=== PATIENT | male | born 1955 | race Caucasian/White ===

== ENCOUNTER → 2016-10-29 | Outpatient (REF) | payer OTHER ==
[~2016-10-29] MED LIST: ASPI325T PO; BUDE150T PO; MULTIVIT PO; SIMV40TA2 PO; SYNT175T PO; TESTIN TOP; UROXATRAL PO
== END | disposition home or self-care (01) ==
LOC: M LAB REF 10:09
PROVIDERS: ATTEND Urology
DX: E29.1 Testicular hypofunction (principal)

== ENCOUNTER → 2016-11-26 | Outpatient (REF) | payer OTHER | LOC: M SMT 12:52 | PROVIDERS: ATTEND Urology | DX: R35.0 Frequency of micturition (principal) ==

== ENCOUNTER → 2016-11-28 | Outpatient (REF) | payer OTHER | LOC: M LABDRAW1 11:47 | PROVIDERS: ATTEND Urology | DX: Z12.5 Encounter for screening for malignant neoplasm of prostate (principal) ==

== ENCOUNTER → 2016-12-12 | Outpatient (CLI) | payer OTHER ==
[2016-12-12 13:50] LABS: MEAN CORPUSCULAR HEMOGLOBIN 25.7 pg (27.0-33.0); MEAN CORPUSCULAR HGB CONC 31.9 g/dl (32.0-36.5); MEAN CORPUSCULAR VOLUME 80.7 fl (80.0-96.0); WHITE BLOOD COUNT 7.7 K/mm3 (4.0-10.0)
[2016-12-12 13:55] LABS: INR 0.94
[2016-12-12 14:17] LABS: ANION GAP 10 MEQ/L (8-16); BLOOD UREA NITROGEN 11 MG/DL (7-18); CALCIUM LEVEL 8.9 MG/DL (8.8-10.2); CARBON DIOXIDE LEVEL 26 MEQ/L (21-32); CHLORIDE LEVEL 105 MEQ/L (98-107); CREATININE FOR GFR 0.97 MG/DL (0.70-1.30); GLOMERULAR FILTRATION RATE > 60.0 (>49); GLUCOSE, FASTING 88 MG/DL (80-110); SODIUM LEVEL 141 MEQ/L (136-145)
--- NOTE | 2016-12-12 14:31 | REP ---
Clinical: Preoperative assessment. Comparison: 08/10/2015 . Technique: PA and lateral. Findings: The mediastinum and cardiac silhouette are normal. Airway is patent and midline. The lung urrutia are clear and without acute consolidation, effusion, or pneumothorax. The skeletal structures are intact and normal. Impression: 1. No acute cardiopulmonary process. Signed by Noah Block MD 12/12/2016 02:22 P
--- NOTE | 2016-12-13 22:00 | ECGEPIP ---
Stationary ECG Study [facility] Test Date: 2016-12-12 Pat Name: OSMEL ANGULO Department: Room: - Gender: M Orthopedic Technician: YORDAN : 1955 Requested By: LYNN Alaniz Order Number: [id number] Reading MD: Cesar Cobos Measurements Intervals [place] Rate: 78 P: 28 ID: [id number] QRS: 33 QRSD: 97 T: 26 QT: 360 QTc: 411 Interpretive Statements SINUS RHYTHM SIMILAR 02/27/14 Electronically Signed On 12-13-2016 21:59:58 EDT by Cesar Cobos
== END ==
LOC: M RAD 13:10
PROVIDERS: ATTEND Urology
DX: R35.0 Frequency of micturition (principal)

== ENCOUNTER → 2017-01-14 | Outpatient (REF) | payer OTHER ==
[~2017-01-14] MED LIST changes: +ASPI81TA85 PO; +CRES10TA32 PO; +LEVA500T PO; +LEVO175T2 PO; +MOBI15TA PO; +MULT1TAB10 PO; +OMEP20CA3 PO; +TESTOPEL
== END ==
LOC: M SMT 10:23
PROVIDERS: ATTEND Urology
DX: N40.1 Benign prostatic hyperplasia with lower urinary tract symptoms (principal)

== ENCOUNTER → 2017-01-23 | Outpatient (REF) | payer OTHER | LOC: M SMT 11:57 | PROVIDERS: ATTEND Nurse Practitioner Women's Health | DX: R31.0 Gross hematuria (principal) ==

== ENCOUNTER → 2017-01-25 | Outpatient (CLI) | payer OTHER ==
[~2017-01-25] MED LIST changes: +GASTROGRAFIN SOLUTION 30ML (Q9963) As Ordered ONE; +ISOVUE-370 76% 100ML VIAL (Q9967) As Ordered ONE
--- NOTE | 2017-01-26 09:15 | REP ---
CT ABDOMEN: HISTORY: Abdominal pain. PRIORS: 02/27/2014, a noncontrast enhanced examination and 10/30/2013, a contrast enhanced examination. CONTRAST: 100 mL of Isovue-370. The lung bases are essentially clear and unchanged. There are some chronic changes, stable. There are no pleural or pericardial effusions. The precontrast enhanced portion of the examination shows hepatic and splenic densities to be within normal limits. There are no choleliths or nephroliths. The contrast enhanced portion of the examination shows the liver, gallbladder, spleen, pancreas, adrenal glands and kidneys to be within normal limits and essentially unchanged. The abdominal aorta and paraaortic regions are within normal limits and essentially unchanged. The bowel loops and their mesenteries are within normal limits. There are a few scattered descending colon diverticula. There is no intraabdominal mass or adenopathy. CT pelvis: There is no mass or adenopathy. There is no free fluid or free air. There is sigmoid colon diverticulosis. The prostate gland is full sized, possibly enlarged. There is corpora amylacea. There are pelvic phleboliths. Bone window technique throughout the examination shows the osseous structures to be within normal limits for the patient's age. IMPRESSION: There is no evidence of acute intraabdominal or intrapelvic disease. Findings as described above. Possible prostatomegaly which should be correlated clinically and seen in conjunction with corpora amylacea. Other findings as described above. Signed by Riky Leblanc DO 01/26/2017 09:21 A
== END ==
LOC: M RAD 13:47
PROVIDERS: ATTEND Nurse Practitioner Family
DX: R10.11 Right upper quadrant pain (principal); R10.811 Right upper quadrant abdominal tenderness; N40.0 Benign prostatic hyperplasia without lower urinary tract symptoms
CPT/HCPCS: 74178; Q9963; Q9967

== ENCOUNTER → 2017-03-05 | Outpatient (CLI) | payer OTHER ==
[~2017-03-05] MED LIST changes: -GASTROGRAFIN SOLUTION 30ML (Q9963) As Ordered ONE; -ISOVUE-370 76% 100ML VIAL (Q9967) As Ordered ONE
== END ==
LOC: M LAB 11:21
PROVIDERS: ATTEND Urology
DX: E29.1 Testicular hypofunction (principal)

== ENCOUNTER 2017-04-03 08:23 | Emergency (ER) | payer OTHER ==
[~2017-04-03] VITALS: Ht 172.7 cm; Wt 94.5 kg
[~2017-04-03 08:23] MED LIST changes: +LEVA1TAB2 PO; -LEVA500T PO
[2017-04-03 09:02] LABS: BASO % 0.4 % (0.0-1.0); EOS # 0.2 K/mm3 (0.0-0.50); EOS % 1.8 % (0.0-3.0); LARGE UNSTAINED CELL # 0.1 K/mm3 (0.0-0.4); LARGE UNSTAINED CELL % 1.3 % (0.0-4.0); LYMPH # 1.1 K/mm3 (1.5-4.5); LYMPH % 11.3 % (24.0-44.0); MEAN CORPUSCULAR HEMOGLOBIN 26.4 pg (27.0-33.0); MEAN CORPUSCULAR HGB CONC 32.4 g/dl (32.0-36.5); MEAN CORPUSCULAR VOLUME 81.3 fl (80.0-96.0); MONO # 0.5 K/mm3 (0.0-0.8); MONO % 5.6 % (0.0-5.0); NEUTROPHILS # 6.7 K/mm3 (1.8-7.7); NEUTROPHILS % 79.6 % (36.0-66.0); PLATELET COUNT, AUTOMATED 212 k/mm3 (150-450); WHITE BLOOD COUNT 8.4 K/mm3 (4.0-10.0)
[2017-04-03 09:18] LABS: ALBUMIN 3.5 GM/DL (3.2-5.2); ALBUMIN/GLOBULIN RATIO 1.06 (1.00-1.93); ALKALINE PHOSPHATASE 69 U/L (45-117); ALT/SGPT 29 U/L (12-78); ANION GAP 5 MEQ/L (8-16); AST/SGOT 17 U/L (15-37); BILIRUBIN,DIRECT 0.2 MG/DL (0.0-0.2); BILIRUBIN,TOTAL 1.1 MG/DL (0.2-1.0); BLOOD UREA NITROGEN 9 MG/DL (7-18); CALCIUM LEVEL 8.3 MG/DL (8.8-10.2); CARBON DIOXIDE LEVEL 27 MEQ/L (21-32); CHLORIDE LEVEL 105 MEQ/L (98-107); CREATININE FOR GFR 0.74 MG/DL (0.70-1.30); GLOMERULAR FILTRATION RATE > 60.0 (>49); GLUCOSE, FASTING 105 MG/DL (80-110); POTASSIUM SERUM 3.7 MEQ/L (3.5-5.1); SODIUM LEVEL 137 MEQ/L (136-145); TOTAL PROTEIN 6.8 GM/DL (6.4-8.2)
[2017-04-03] MEDS ORDERED: KETOROLAC 30 MG/ML VIAL (J1885) IV ONE (09:30)
[2017-04-03] MEDS ORDERED: ISOVUE-370 76% 100ML VIAL (Q9967) As Ordered ONE (09:32)
[2017-04-03 11:03] VITALS: BP 131/73
--- NOTE | 2017-04-03 11:18 | REP ---
CT ABDOMEN AND PELVIS WITH IV CONTRAST: TECHNIQUE: Axial contrast enhanced images from the lung bases to the pubic symphysis using 100 mL Isovue 370 intravenous contrast material with multiplanar reformations. The visualized lung bases demonstrate mild fibroatelectatic change. The liver, spleen, adrenals, pancreas and kidneys are unremarkable in appearance. There is no abdominal aortic aneurysm. There is no adenopathy. There is no free air. There is mild scattered free fluid throughout the abdomen and pelvis. There are multiple moderately dilated small bowel loops noted. Distal ileum is relatively normal in caliber. Findings may represent some degree of small bowel obstruction versus an ileus. Several sigmoid diverticula and left colonic diverticula are present. No pelvic mass is seen. Urinary bladder appears unremarkable. The appendix is normal. IMPRESSION: Multiple moderately dilated small bowel loops with mild scattered free fluid in the abdomen and pelvis. Findings are suggestive of some degree of small bowel obstruction or possibly a small bowel ileus. Signed by Simeon Gilbert MD 04/03/2017 05:36 P
--- NOTE | 2017-04-03 21:47 | ECGEPIP ---
Stationary ECG Study [facility] - ED Test Date: 2017-04-03 Pat Name: OSMEL ANGULO Department: Room: - Gender: M Web Application Tester: rn : 1955 Requested By: LORETA Duvall Order Number: [id number] Reading MD: Radha Ralph Measurements Intervals [place] Rate: 84 P: 28 FL: 140 QRS: 24 QRSD: 108 T: 22 QT: 365 QTc: 434 Interpretive Statements SINUS RHYTHM SIMILAR 12/12/16 Electronically Signed On 04-03-2017 21:47:05 EDT by Radha Ralph
--- NOTE | 2017-04-04 15:01 | ED PDOC ---
Post-Departure Follow-Up dr ceron faxed formal report of ct abd/p for fu Leyda Bliss MD Apr 04, 2017 15:01
[2017-05-13] MEDS ORDERED: ASPI81TA85 PO (08:32)
[2017-05-13] MEDS ORDERED: VITA200015 PO (08:32)
== END 2017-04-03 11:38 | disposition home or self-care (01) ==
LOC: M ED 08:23
DX: K52.9 Noninfective gastroenteritis and colitis, unspecified (principal); K56.7 Ileus, unspecified; K21.9 Gastro-esophageal reflux disease without esophagitis; E07.9 Disorder of thyroid, unspecified; A69.20 Lyme disease, unspecified; Z87.891 Personal history of nicotine dependence; Z88.8 Allergy status to other drugs, medicaments and biological substances; Z88.0 Allergy status to penicillin; Z88.1 Allergy status to other antibiotic agents; Z79.899 Other long term (current) drug therapy
CPT/HCPCS: 74177; 80048; 80076; 82550; 82553; 83690; 85025; 93005; 93041; 94760; 96374; 99285; J1885; Q9967

== ENCOUNTER → 2017-04-04 | Outpatient (CLI) | payer BC ==
[~2017-04-04] MED LIST changes: +BACT800T5 PO; +TYLE650T35 PO; +VITA200015 PO
== END ==
LOC: EDBD → EDSEX → M RAD 09:15
PROVIDERS: ATTEND Orthopaedic Surgery
DX: Z53.8 Procedure and treatment not carried out for other reasons (principal)

== ENCOUNTER → 2017-04-04 | Outpatient (CLI) | payer OTHER | LOC: M SMT PRO 09:24 | PROVIDERS: ATTEND Urology | DX: Z01.818 Encounter for other preprocedural examination (principal); N52.9 Male erectile dysfunction, unspecified; N48.1 Balanitis ==

== ENCOUNTER → 2017-05-14 | Outpatient (CLI) | payer OTHER | LOC: M LAB 08:23 | PROVIDERS: ATTEND Internal Medicine | DX: R73.09 Other abnormal glucose (principal) ==

== ENCOUNTER → 2017-05-14 | Outpatient (CLI) | payer OTHER ==
[2017-05-14 08:48] LABS: MEAN CORPUSCULAR HEMOGLOBIN 26.2 pg (27.0-33.0); MEAN CORPUSCULAR HGB CONC 32.2 g/dl (32.0-36.5); MEAN CORPUSCULAR VOLUME 81.5 fl (80.0-96.0); RED CELL DISTRIBUTION WIDTH 13.4 % (11.5-14.5); WHITE BLOOD COUNT 6.6 K/mm3 (4.0-10.0)
[2017-05-14 08:59] LABS: INR 0.9
[2017-05-14 09:11] LABS: ANION GAP 7 MEQ/L (8-16); BLOOD UREA NITROGEN 14 MG/DL (7-18); CALCIUM LEVEL 8.8 MG/DL (8.8-10.2); CARBON DIOXIDE LEVEL 26 MEQ/L (21-32); CHLORIDE LEVEL 108 MEQ/L (98-107); CREATININE FOR GFR 0.85 MG/DL (0.70-1.30); GLOMERULAR FILTRATION RATE > 60.0 (>49); GLUCOSE, FASTING 101 MG/DL (80-110); POTASSIUM SERUM 4.6 MEQ/L (3.5-5.1); SODIUM LEVEL 141 MEQ/L (136-145)
== END ==
LOC: M LAB 08:20
PROVIDERS: ATTEND Urology
DX: Z01.812 Encounter for preprocedural laboratory examination (principal); N48.1 Balanitis

== ENCOUNTER 2017-05-22 10:25 | Day surgery (SDC) | payer OTHER ==
[~2017-05-22] VITALS: Ht 172.7 cm; Wt 93.9 kg
[~2017-05-22 10:25] MED LIST changes: -BACT800T5 PO; +LIDOCAINE 2% INJ 100 MG/5 ML SDV (FOR ANES.) As Ordered ONE; +LR 1,000 ML IV ONE; +MIDAZOLAM INJ 2 MG/2 ML VIAL (J2250) As Ordered ONE; +PROPOFOL 200 MG/20 ML VIAL As Ordered ONE; -TYLE650T35 PO; +VANCOMYCIN HCL 1,000 MG, VIAL MATE ADAPTER 1 EACH in D5W 250 ML IV ONE; +fentaNYL 250 MCG/5 ML INJECTION (J3010) As Ordered ONE
[2017-05-22] MEDS ORDERED: LIDOCAINE 1% SDV INJ 30 ML VIAL As Ordered ONE (13:07)
[2017-05-22] MEDS ORDERED: BACITRACIN OINT 30GM As Ordered ONE (13:07)
[2017-05-22] MEDS ORDERED: BUPIVACAINE HCL 0.25% 30 ML VIAL As Ordered ONE ×2 (13:07→13:10)
[2017-05-22] MEDS ORDERED: ONDANSETRON 4MG/2ML VIAL (J2405) As Ordered ONE (13:41)
[2017-05-22] MEDS ORDERED: METOCLOPRAMIDE INJ 10MG/2ML VIAL (J2765) As Ordered ONE (13:41)
[2017-05-22] MEDS ORDERED: dexameTHASONE 4 MG/ML 1ML VIAL (J1100) As Ordered ONE (13:41)
[2017-05-22] MEDS ORDERED: PROPOFOL 200 MG/20 ML VIAL As Ordered ONE (14:06)
[2017-05-22] MEDS ORDERED: KETOROLAC 60 MG/2 ML VIAL (J1885) As Ordered ONE (14:19)
[2017-05-22] MEDS ORDERED: BACT800T5 PO (14:42)
[2017-05-22] MEDS ORDERED: TYLE650T35 PO (14:42)
[2017-05-22 15:55] VITALS: BP 138/78
--- NOTE | 2017-05-22 22:23 | RO ---
DATE OF PROCEDURE: 05/22/2017 PREOPERATIVE DIAGNOSIS: Foreskin lymphedema. POSTOPERATIVE DIAGNOSIS: Foreskin lymphedema. FINDINGS: Foreskin lymphedema. SURGERY PERFORMED: Circumcision. SURGEON: Scot Maradiaga MD WANIGAN CLERK: None. ANESTHESIA: General. COMPLICATIONS: None. ESTIMATED BLOOD LOSS: N/A HISTORY OF PRESENT ILLNESS: This is a 62-year-old male patient that has lymphedema of the foreskin at the level of the mucosa of the foreskin near the sulcus of the glans. For this reason he has consented for a circumcision. PROCEDURE DESCRIPTION: With the patient under general anesthesia in the supine position, after prepping and draping the area of concern, which included the entire genitalia and abdomen, we started by introducing a Flower catheter since he had a septum in the urethral meatus to identify the urethra. We then proceeded to do an incision 1 cm away from the sulcus of the glans in a circumferential fashion and then 3 cm proximal to the base of the penis we actually did another circumferential incision. We excised the foreskin between both incisions, fulgurated the bleeding vessels and sent the foreskin for permanent pathology analysis. We then proceeded to suture together the borders of the skin with catgut chromic #3-0 in separate stitches. We then proceeded to actually place a penile block to prevent pain after surgery with Marcaine 0.25% and lidocaine 1%, total of 10 mL at the base of the penis. We then proceeded to place Vaseline and gauze around the penis and then Kerlix roll and a Coban. PLAN: The patient will go home today with antibiotic and pain medication. He will be following at [facility] in 3 days for removal of the bandages. There were no complications during surgery. Foreskin was sent for permanent pathology analysis.
== END 2017-05-22 16:20 | disposition home or self-care (01) ==
LOC: M SDC 10:25
PROVIDERS: ATTEND Urology
DX: N48.1 Balanitis (principal); I10 Essential (primary) hypertension; E03.9 Hypothyroidism, unspecified; A69.20 Lyme disease, unspecified; E29.1 Testicular hypofunction; K21.9 Gastro-esophageal reflux disease without esophagitis; M17.0 Bilateral primary osteoarthritis of knee; G47.30 Sleep apnea, unspecified; Z87.891 Personal history of nicotine dependence; Z88.0 Allergy status to penicillin; Z88.1 Allergy status to other antibiotic agents; Z88.3 Allergy status to other anti-infective agents; Z79.899 Other long term (current) drug therapy; Z79.82 Long term (current) use of aspirin
CPT/HCPCS: 54161; 88302; J1100; J1885; J2250; J2405; J2765; J3010; J3370

== ENCOUNTER → 2017-07-11 | Outpatient (CLI) | payer OTHER ==
[~2017-07-11] MED LIST changes: +BACT800T5 PO; -LIDOCAINE 2% INJ 100 MG/5 ML SDV (FOR ANES.) As Ordered ONE; -LR 1,000 ML IV ONE; -MIDAZOLAM INJ 2 MG/2 ML VIAL (J2250) As Ordered ONE; -PROPOFOL 200 MG/20 ML VIAL As Ordered ONE; +TYLE650T35 PO; -VANCOMYCIN HCL 1,000 MG, VIAL MATE ADAPTER 1 EACH in D5W 250 ML IV ONE; -fentaNYL 250 MCG/5 ML INJECTION (J3010) As Ordered ONE
== END ==
LOC: M LAB 07:45
PROVIDERS: ATTEND Urology
DX: E29.1 Testicular hypofunction (principal)

== ENCOUNTER → 2017-07-16 | Outpatient (CLI) | payer OTHER ==
[2017-07-16 16:17] LABS: URIC ACID 4.6 MG/DL (3.5-7.2)
--- NOTE | 2017-07-16 16:31 | REP ---
STANDING AP VIEW BILATERAL KNEES: Standing AP view bilateral knees performed. There is no fracture or dislocation. There is mild medial joint space narrowing on the left. I do not see significant joint space narrowing on the right. Signed by Simeon Gilbert MD 07/17/2017 04:31 P
[2017-07-19 00:06] LABS: Lyme Disease IgG/IgM Antibodie <0.91 ISR (0.00-0.90); Lyme Disease IgM Ab Quantitati <0.80 index (0.00-0.79)
== END ==
LOC: M LAB 12:31
PROVIDERS: ATTEND Internal Medicine Infectious Disease
DX: M25.561 Pain in right knee (principal)

== ENCOUNTER → 2017-08-08 | Outpatient (REF) | payer OTHER | LOC: M LAB REF 12:14 | PROVIDERS: ATTEND Internal Medicine | DX: E03.9 Hypothyroidism, unspecified (principal) ==

== ENCOUNTER → 2017-08-08 | Outpatient (CLI) | payer OTHER ==
[2017-08-08 08:50] LABS: BASO # 0.1 10^3/uL (0.0-0.2); BASO % 0.7 % (0.0-1.0); EOS # 0.3 10^3/uL (0.0-0.50); EOS % 2.9 % (0.0-3.0); IMMATURE GRANULOCYTE % 0.2 % (0-0); LYMPH # 1.7 10^3/uL (1.5-4.5); LYMPH % 18.3 % (24.0-44.0); MEAN CORPUSCULAR HGB CONC 32.2 g/dl (32.0-36.5); MEAN CORPUSCULAR VOLUME 80.7 fl (80.0-96.0); MONO # 0.6 10^3/uL (0.0-0.8); MONO % 7.1 % (0.0-5.0); NEUTROPHILS # 6.4 10^3/uL (1.8-7.7); NEUTROPHILS % 70.8 % (36.0-66.0); PLATELET COUNT, AUTOMATED 300 10^3/uL (150-450); RED CELL DISTRIBUTION WIDTH 14.6 % (11.5-14.5); WHITE BLOOD COUNT 9.1 10^3/uL (4.0-10.0)
[2017-08-08 09:17] LABS: ALBUMIN 3.7 GM/DL (3.2-5.2); ALBUMIN/GLOBULIN RATIO 1.09 (1.00-1.93); ALKALINE PHOSPHATASE 88 U/L (45-117); ALT/SGPT 36 U/L (12-78); ANION GAP 7 MEQ/L (8-16); AST/SGOT 18 U/L (7-37); BILIRUBIN,DIRECT 0.2 MG/DL (0.0-0.2); BILIRUBIN,TOTAL 0.7 MG/DL (0.2-1.0); BLOOD UREA NITROGEN 12 MG/DL (7-18); CALCIUM LEVEL 9.3 MG/DL (8.8-10.2); CARBON DIOXIDE LEVEL 27 MEQ/L (21-32); CHLORIDE LEVEL 105 MEQ/L (98-107); CHOLESTEROL LEVEL 145 MG/DL (<200); CREATININE FOR GFR 0.85 MG/DL (0.70-1.30); GLOMERULAR FILTRATION RATE > 60.0 (>49); GLUCOSE, FASTING 109 MG/DL (80-110); MAGNESIUM LEVEL 2.1 MG/DL (1.8-2.4); POTASSIUM SERUM 4.5 MEQ/L (3.5-5.1); SODIUM LEVEL 139 MEQ/L (136-145); TOTAL PROTEIN 7.1 GM/DL (6.4-8.2); TRIGLYCERIDES LEVEL 136 MG/DL (<150)
== END ==
LOC: M LAB 08:05
PROVIDERS: ATTEND Internal Medicine Infectious Disease
DX: R73.09 Other abnormal glucose (principal); E03.9 Hypothyroidism, unspecified

== ENCOUNTER → 2017-08-18 | Outpatient (CLI) | payer OTHER ==
--- NOTE | 2017-08-18 13:12 | REP ---
Clinical: Flu-like symptoms . Comparison: 12/12/2016 . Technique: PA and lateral. Findings: The mediastinum and cardiac silhouette are normal. The lung urrutia demonstrate chronic stable changes without acute consolidation, effusion, or pneumothorax. The skeletal structures are intact and normal. Impression: 1. No acute cardiopulmonary process. Signed by Noah Block MD 08/18/2017 01:04 P
== END ==
LOC: M WUC 12:38
PROVIDERS: ATTEND Physician Assistant
DX: J09.X2 Influenza due to identified novel influenza A virus with other respiratory manifestations (principal)

== ENCOUNTER → 2017-11-21 | Outpatient (CLI) | payer OTHER ==
[2017-11-21 07:43] LABS: HEMATOCRIT 50.8 % (42.0-52.0); HEMOGLOBIN 16.7 g/dl (14.0-18.0); MEAN CORPUSCULAR HEMOGLOBIN 26.3 pg (27.0-33.0); MEAN CORPUSCULAR HGB CONC 32.9 g/dl (32.0-36.5); PLATELET COUNT, AUTOMATED 240 10^3/uL (150-450); RED BLOOD COUNT 6.35 10^6/uL (4.30-6.10); RED CELL DISTRIBUTION WIDTH 13.9 % (11.5-14.5); WHITE BLOOD COUNT 6.3 10^3/uL (4.0-10.0)
[2017-11-21 08:09] LABS: ANION GAP 8 MEQ/L (8-16); BLOOD UREA NITROGEN 17 MG/DL (7-18); CALCIUM LEVEL 8.7 MG/DL (8.8-10.2); CARBON DIOXIDE LEVEL 27 MEQ/L (21-32); CHLORIDE LEVEL 106 MEQ/L (98-107); CHOLESTEROL LEVEL 142 MG/DL (<200); CHOLESTEROL RISK RATIO 4.437 (<5); FREE T4 1.37 NG/DL (0.76-1.46); GLOMERULAR FILTRATION RATE > 60.0 (>49); GLUCOSE, FASTING 103 MG/DL (70-100); HDL CHOLESTEROL 32 MG/DL (>40); LDL CHOLESTEROL 85.4 MG/DL (<100); NON-HDL-C 110 MG/DL; POTASSIUM SERUM 4.1 MEQ/L (3.5-5.1); SODIUM LEVEL 141 MEQ/L (136-145); THYROID STIMULATING HORMONE 0.024 uIU/ML (0.358-3.740); TRIGLYCERIDES LEVEL 123 MG/DL (<150)
[2017-11-21 08:26] LABS: ESTIMATED AVERAGE GLUCOSE 123 MG/DL (60-110); HEMOGLOBIN A1c 5.9 %
== END ==
LOC: M LAB 06:53
DX: E78.5 Hyperlipidemia, unspecified (principal)

== ENCOUNTER → 2017-11-21 | Outpatient (CLI) | payer OTHER ==
[2017-11-21 09:46] LABS: TESTOSTERONE 582 NG/DL (241-827)
== END ==
LOC: M LAB 06:49
DX: E29.1 Testicular hypofunction (principal)
CPT/HCPCS: 84403

== ENCOUNTER → 2017-12-09 | Outpatient (CLI) | payer OTHER ==
[2017-12-09 16:04] LABS: APPEARANCE, URINE MANUAL CLEAR (CLEAR); BILIRUBIN, URINE MANUAL NEGATIVE (NEGATIVE); BLOOD URINE MANUAL NEGATIVE (NEGATIVE); COLOR, URINE MANUAL YELLOW (YELLOW); GLUCOSE, URINE (UA) MANUAL NEGATIVE (NEGATIVE); KETONE, URINE MANUAL NEGATIVE (NEGATIVE); LEUKOCYTE ESTERASE, URINE MAN NEGATIVE (NEGATIVE); NITRITE, URINE MANUAL NEGATIVE (NEGATIVE); PH,URINE MAN 5.5 UNITS (5.0 - 7.0); PROTEIN, URINE MANUAL NEGATIVE (NEGATIVE); SPECIFIC GRAVITY,URINE MANUAL 1.025 (1.002-1.035); UROBILINOGEN, URINE MANUAL NORMAL (NORMAL)
[2017-12-09 16:05] LABS: MICROSCOPIC INDICATED? MAN NO (NO)
== END ==
LOC: M LAB 15:41
DX: N39.0 Urinary tract infection, site not specified (principal)

== ENCOUNTER → 2018-02-21 | Outpatient (REF) | LOC: M RAD 14:21 | DX: Z02.1 Encounter for pre-employment examination (principal) ==

== ENCOUNTER → 2018-02-26 | Outpatient (REF) | LOC: M EKG 07:49 | DX: Z02.1 Encounter for pre-employment examination (principal) ==

== ENCOUNTER 2018-04-04 07:59 | Outpatient (CLI) | payer OTHER ==
[2018-04-07 09:04] LABS: PSA TOTAL 1.6 ng/mL
[2018-04-11 00:37] LABS: TESTOSTERONE FREE (DIRECT) 8.7 pg/mL (6.6-18.1)
== END 2018-04-09 ==
LOC: M LAB 07:59
DX: E29.1 Testicular hypofunction (principal)
CPT/HCPCS: 84154; 84403

== ENCOUNTER → 2018-07-09 | Outpatient (CLI) | payer OTHER | LOC: M LAB 07:55 | DX: E29.1 Testicular hypofunction (principal) | CPT/HCPCS: 84410 ==

== ENCOUNTER → 2018-07-09 | Outpatient (CLI) | payer OTHER ==
[2018-07-09 09:34] LABS: ESTIMATED AVERAGE GLUCOSE 120 MG/DL (60-110); HEMOGLOBIN A1c 5.8 %
[2018-07-09 09:56] LABS: ANION GAP 7 MEQ/L (8-16); BLOOD UREA NITROGEN 18 MG/DL (7-18); CALCIUM LEVEL 8.8 MG/DL (8.8-10.2); CARBON DIOXIDE LEVEL 28 MEQ/L (21-32); CHLORIDE LEVEL 107 MEQ/L (98-107); CHOLESTEROL LEVEL 144 MG/DL (<200); CHOLESTEROL RISK RATIO 4.645 (<5); CREATININE FOR GFR 0.98 MG/DL (0.70-1.30); GLOMERULAR FILTRATION RATE > 60.0 (>49); GLUCOSE, FASTING 111 MG/DL (70-100); HDL CHOLESTEROL 31 MG/DL (>40); LDL CHOLESTEROL 88 MG/DL (<100); NON-HDL-C 113 MG/DL; POTASSIUM SERUM 4.3 MEQ/L (3.5-5.1); SODIUM LEVEL 142 MEQ/L (136-145); TRIGLYCERIDES LEVEL 124 MG/DL (<150)
== END ==
LOC: M LAB 07:44
DX: E03.9 Hypothyroidism, unspecified (principal)
CPT/HCPCS: 84443

== ENCOUNTER → 2018-08-18 | Outpatient (CLI) | payer OTHER ==
[2018-08-18 11:17] LABS: GLUCOSE, FASTING 97 MG/DL (70-100)
== END ==
LOC: M LAB 09:46
DX: R73.09 Other abnormal glucose (principal); E03.9 Hypothyroidism, unspecified
CPT/HCPCS: 82947

== ENCOUNTER → 2018-09-22 | Outpatient (CLI) | payer OTHER | LOC: M LAB 11:03 | PROVIDERS: ATTEND Internal Medicine | DX: E03.9 Hypothyroidism, unspecified (principal) ==

== ENCOUNTER → 2018-10-17 | Outpatient (CLI) | payer OTHER ==
[2018-10-19 00:08] LABS: TESTOSTERONE FREE (DIRECT) 6.2 pg/mL (6.6-18.1)
== END ==
LOC: M LAB 09:35
PROVIDERS: ATTEND Urology
DX: F52.21 Male erectile disorder (principal)

== ENCOUNTER → 2018-11-10 | Outpatient (CLI) | payer OTHER ==
[2018-11-10 10:23] LABS: BLOOD UREA NITROGEN 16 MG/DL (7-18); CARBON DIOXIDE LEVEL 27 MEQ/L (21-32); CHLORIDE LEVEL 105 MEQ/L (98-107); CREATININE FOR GFR 0.91 MG/DL (0.70-1.30); GLOMERULAR FILTRATION RATE > 60.0 (>49); GLUCOSE, FASTING 107 MG/DL (70-100); POTASSIUM SERUM 4.2 MEQ/L (3.5-5.1); SODIUM LEVEL 138 MEQ/L (136-145)
[2018-11-10 10:42] LABS: HEMOGLOBIN A1c 6.1 %
== END ==
LOC: M LAB 08:57
PROVIDERS: ATTEND Internal Medicine
DX: E03.9 Hypothyroidism, unspecified (principal); E78.00 Pure hypercholesterolemia, unspecified; R73.09 Other abnormal glucose

== ENCOUNTER → 2018-11-14 | Outpatient (REF) | payer OTHER | LOC: M LAB REF 17:24 | PROVIDERS: ATTEND Dermatology | DX: D22.9 Melanocytic nevi, unspecified (principal) ==

== ENCOUNTER → 2018-12-30 | Outpatient (CLI) | payer OTHER ==
[~2018-12-30] MED LIST changes: +CRES10TA PO; -CRES10TA32 PO
--- NOTE | 2018-12-30 16:15 | REP ---
Thoracic spine series: Four views. History: Severe upper back pain. Comparison is made with chest x-ray, most recent of which is February 22, 2008 pain. Findings there is a mild levoconvex curve in the upper thoracic spine unchanged from the comparison chest x-ray. Thoracic vertebral body heights are preserved. Alignment is normal. There is degenerative disc disease in the lower thoracic spine and in the upper lumbar levels. There are degenerative disc changes in the cervical spine as well on swimmers lateral view at C5-6 and C6-7 and to some degree at C7-T1. Pedicles and posterior elements are intact. No paravertebral soft-tissue mass is appreciated. Impression: Degenerative spondylosis changes. No acute bony abnormality. Mild levoconvex curvature in the upper thoracic spine unchanged. Electronically Signed by Ascencion Meade MD 12/30/2018 08:34 P
== END ==
LOC: M RAD 11:55
PROVIDERS: ATTEND Internal Medicine
DX: M51.34 Other intervertebral disc degeneration, thoracic region (principal); M50.322 Other cervical disc degeneration at C5-C6 level; M50.323 Other cervical disc degeneration at C6-C7 level; M41.34 Thoracogenic scoliosis, thoracic region

== ENCOUNTER 2019-01-19 08:15 | Outpatient (RCR) | payer OTHER | END 2019-01-20 | LOC: M PT 08:15 | PROVIDERS: ATTEND Internal Medicine | DX: M54.6 Pain in thoracic spine (principal) ==

== ENCOUNTER → 2019-02-27 | Outpatient (CLI) | payer OTHER ==
[2019-03-01 00:06] LABS: TESTOSTERONE FREE (DIRECT) 4.8 pg/mL (6.6-18.1)
== END ==
LOC: M LAB 07:57
PROVIDERS: ATTEND Urology
DX: E29.1 Testicular hypofunction (principal)

== ENCOUNTER → 2019-02-27 | Outpatient (CLI) | payer OTHER ==
[2019-02-27 09:36] LABS: BASO % 0.7 % (0.0-1.0); EOS # 0.2 10^3/uL (0.0-0.50); EOS % 3.5 % (0.0-3.0); LYMPH # 1.5 10^3/uL (1.5-4.5); LYMPH % 25.4 % (24.0-44.0); MEAN CORPUSCULAR HEMOGLOBIN 26.9 pg (27.0-33.0); MEAN CORPUSCULAR HGB CONC 33.1 g/dl (32.0-36.5); MEAN CORPUSCULAR VOLUME 81.3 fl (80.0-96.0); MONO # 0.5 10^3/uL (0.0-0.8); MONO % 8.4 % (0.0-5.0); NEUTROPHILS # 3.5 10^3/uL (1.8-7.7); NEUTROPHILS % 61.6 % (36.0-66.0); PLATELET COUNT, AUTOMATED 217 10^3/uL (150-450); RED BLOOD COUNT 6.43 10^6/uL (4.30-6.10); WHITE BLOOD COUNT 5.7 10^3/uL (4.0-10.0)
[2019-02-27 09:40] LABS: HEMATOCRIT 52.3 % (42.0-52.0); HEMOGLOBIN 17.3 g/dl (13.5-17.5)
[2019-02-27 10:03] LABS: ALBUMIN 4.1 GM/DL (3.2-5.2); ALT/SGPT 55 U/L (12-78); BILIRUBIN,DIRECT 0.2 MG/DL (0.0-0.2); BILIRUBIN,TOTAL 0.9 MG/DL (0.2-1.0); BLOOD UREA NITROGEN 18 MG/DL (7-18); CARBON DIOXIDE LEVEL 26 MEQ/L (21-32); CHLORIDE LEVEL 105 MEQ/L (98-107); CHOLESTEROL LEVEL 150 MG/DL (<200); CHOLESTEROL RISK RATIO 4.687 (<5); CREATININE FOR GFR 0.85 MG/DL (0.70-1.30); GLOMERULAR FILTRATION RATE > 60.0 (>49); GLUCOSE, FASTING 98 MG/DL (70-100); HDL CHOLESTEROL 32 MG/DL (>40); LDL CHOLESTEROL 98 MG/DL (<100); NON-HDL-C 118 MG/DL; POTASSIUM SERUM 4.3 MEQ/L (3.5-5.1); SODIUM LEVEL 139 MEQ/L (136-145); TOTAL PROTEIN 7.3 GM/DL (6.4-8.2); TRIGLYCERIDES LEVEL 101 MG/DL (<150)
[2019-02-27 10:17] LABS: HEMOGLOBIN A1c 6.1 %
== END ==
LOC: M LAB 07:50
PROVIDERS: ATTEND Internal Medicine
DX: E78.00 Pure hypercholesterolemia, unspecified (principal); R73.9 Hyperglycemia, unspecified; Z86.010 Personal history of colon polyps; Z79.899 Other long term (current) drug therapy

== ENCOUNTER → 2019-07-20 | Outpatient (REF) | payer OTHER ==
[~2019-07-20] MED LIST changes: -OMEP20CA3 PO; +OMEP20CA4 PO
[2019-07-22 00:07] LABS: TESTOSTERONE FREE (DIRECT) 7.1 pg/mL (6.6-18.1)
== END ==
LOC: M LABDRAW1 11:52
DX: E29.1 Testicular hypofunction (principal)

== ENCOUNTER → 2019-09-03 | Outpatient (CLI) | payer OTHER ==
[~2019-09-03] MED LIST changes: +OMEP-172 PO; -OMEP20CA4 PO
[2019-09-03 08:57] LABS: APPEARANCE, URINE CLEAR (CLEAR); BACTERIA, URINE AUTO NEGATIVE (NEGATIVE); BILIRUBIN, URINE AUTO NEGATIVE (NEGATIVE); BLOOD, URINE BLOOD NEGATIVE (NEGATIVE); COLOR, URINE YELLOW (YELLOW); GLUCOSE, URINE (UA) AUTO NEGATIVE (NEGATIVE); KETONE, URINE AUTO NEGATIVE (NEGATIVE); LEUKOCYTE ESTERASE, URINE AUTO NEGATIVE (NEGATIVE); MUCUS, URINE SMALL (NEGATIVE); NITRITE, URINE AUTO NEGATIVE (NEGATIVE); PROTEIN, URINE AUTO NEGATIVE (NEGATIVE); RBC, URINE AUTO 2 /HPF (0-3); SPECIFIC GRAVITY URINE AUTO 1.021 (1.002-1.035); SQUAMOUS EPITHELIAL CELL UR AU 0 /HPF (0-6); UROBILINOGEN, URINE AUTO 0.2 mg/dL (0.0-2.0); WBC, URINE AUTO 1 /HPF (0-3)
[2019-09-03 08:58] LABS: BASO # 0.1 10^3/uL (0.0-0.2); BASO % 0.7 % (0.0-1.0); EOS # 0.3 10^3/uL (0.0-0.5); EOS % 3.8 % (0.0-3.0); HEMATOCRIT 52.4 % (42.0-52.0); HEMOGLOBIN 17.1 g/dl (13.5-17.5); LYMPH # 1.6 10^3/uL (1.5-5.0); LYMPH % 23.3 % (24.0-44.0); MEAN CORPUSCULAR HGB CONC 32.6 g/dl (32.0-36.5); MEAN CORPUSCULAR VOLUME 85.8 fl (80.0-96.0); MONO # 0.7 10^3/uL (0.0-0.8); MONO % 9.8 % (0.0-5.0); NEUTROPHILS # 4.2 10^3/uL (1.5-8.5); NEUTROPHILS % 62.3 % (36.0-66.0); PLATELET COUNT, AUTOMATED 246 10^3/uL (150-450); RED BLOOD COUNT 6.11 10^6/uL (4.30-6.10); WHITE BLOOD COUNT 6.8 10^3/uL (4.0-10.0)
[2019-09-03 09:29] LABS: ALT/SGPT 43 U/L (12-78); BILIRUBIN,TOTAL 0.9 MG/DL (0.2-1.0); BLOOD UREA NITROGEN 14 MG/DL (7-18); CALCIUM LEVEL 9.3 MG/DL (8.8-10.2); CARBON DIOXIDE LEVEL 33 MEQ/L (21-32); CHLORIDE LEVEL 103 MEQ/L (98-107); CHOLESTEROL LEVEL 143 MG/DL (<200); CHOLESTEROL RISK RATIO 4.612 (<5); CREATININE FOR GFR 0.94 MG/DL (0.70-1.30); GLOMERULAR FILTRATION RATE > 60.0 (>49); GLUCOSE, FASTING 104 MG/DL (70-100); HDL CHOLESTEROL 31 MG/DL (>40); LDL CHOLESTEROL 97 MG/DL (<100); NON-HDL-C 112 MG/DL; POTASSIUM SERUM 4.4 MEQ/L (3.5-5.1); SODIUM LEVEL 140 MEQ/L (136-145); THYROID STIMULATING HORMONE 0.467 uIU/ML (0.358-3.740); TOTAL PROTEIN 7.2 GM/DL (6.4-8.2); TRIGLYCERIDES LEVEL 76 MG/DL (<150)
== END ==
LOC: M LAB 07:47
PROVIDERS: ATTEND Internal Medicine
DX: Z86.010 Personal history of colon polyps (principal); E78.00 Pure hypercholesterolemia, unspecified; R35.0 Frequency of micturition; E03.9 Hypothyroidism, unspecified; R73.9 Hyperglycemia, unspecified

== ENCOUNTER → 2019-09-08 | Outpatient (CLI) | payer OTHER ==
[~2019-09-08] MED LIST changes: +METHACHOLINE KIT (J7674) INH ONE
--- NOTE | 2019-09-08 08:36 | PFTRPT ---
Site: [facility], [address] [place], [address] ID: [id number] Name: OSMEL ANGULO Visit Date: 09/08/2019 Second ID: [id number] Referring Doctor: Noel Salas MD Reviewing Doctor: Noel Salas MD Wirer Passenger Car: Jody RANDLE, BERE Age: 64 : 1955 Sex: Male Race: Height: 68.00 Inches Weight: 208.00 Lbs BSA: 2.08 Order IDs: [id number] Requested Test(s): <RESP-PFT.METH CHAL> Diagnosis: R06.02 of albuterol for postbronchodilator. Review Status: Not Reviewed Pre-Bronch Post-Bronch Pred Actual %Pred Actual %Chng SPIROMETRY FVC (L) 4.26 3.73 87 3.42 -8 FEV1 (L) 3.17 2.89 91 2.91 FEV1/FVC (%) 75 77 103 85 9 FEF 25% (L/sec) 7.34 8.43 114 8.57 1 FEF 50% (L/sec) 4.58 3.05 66 3.82 25 FEF 75% (L/sec) 1.32 0.98 74 0.77 -21 FEF 25-75% (L/sec) 2.52 2.32 91 2.61 12 FEF Max (L/sec) 8.35 10.93 130 9.44 -13 FIVC (L) 3.83 3.58 -6 FIF 50% (L/sec) 4.58 9.00 196 8.34 -7 FIF Max (L/sec) 9.01 8.73 -3 Expiratory Time (sec) 6.27 6.24 Back Extrap Vol (L) 0.10 0.11 13 Time To FEFmax (sec) 0.058 0.066 14
== END ==
LOC: M CARPUL 07:39
PROVIDERS: ATTEND Internal Medicine Pulmonary Disease
DX: R06.02 Shortness of breath (principal)

== ENCOUNTER → 2019-11-09 | Outpatient (REF) | payer OTHER ==
[~2019-11-09] MED LIST changes: -METHACHOLINE KIT (J7674) INH ONE; -OMEP-172 PO; +OMEP1CAP73 PO
[2019-11-11 00:06] LABS: TESTOSTERONE FREE (DIRECT) 12.2 pg/mL (6.6-18.1)
== END ==
LOC: M LAB REF 09:33
PROVIDERS: ATTEND Urology
DX: E29.1 Testicular hypofunction (principal)

== ENCOUNTER → 2020-03-03 | Outpatient (CLI) | payer OTHER ==
[2020-03-05 04:08] LABS: TESTOSTERONE FREE (DIRECT) 8.2 pg/mL (6.6-18.1)
== END ==
LOC: M LAB 11:50
PROVIDERS: ATTEND Urology
DX: E29.1 Testicular hypofunction (principal)

== ENCOUNTER → 2020-03-03 | Outpatient (REF) | payer OTHER | LOC: M LAB REF 17:44 | PROVIDERS: ATTEND Dermatology | DX: L57.0 Actinic keratosis (principal) ==

== ENCOUNTER → 2020-03-03 | Outpatient (CLI) | payer OTHER ==
[2020-03-03 12:43] LABS: HEMATOCRIT 51.2 % (42.0-52.0); HEMOGLOBIN 16.1 g/dl (13.5-17.5); MEAN CORPUSCULAR HEMOGLOBIN 24.6 pg (27.0-33.0); MEAN CORPUSCULAR HGB CONC 31.4 g/dl (32.0-36.5); MEAN CORPUSCULAR VOLUME 78.3 fl (80.0-96.0); PLATELET COUNT, AUTOMATED 226 10^3/uL (150-450); RED BLOOD COUNT 6.54 10^6/uL (4.30-6.10); WHITE BLOOD COUNT 7.6 10^3/uL (4.0-10.0)
[2020-03-03 13:14] LABS: ALBUMIN 4.1 GM/DL (3.2-5.2); ALT/SGPT 39 U/L (12-78); BILIRUBIN,TOTAL 1.3 MG/DL (0.2-1.0); BLOOD UREA NITROGEN 19 MG/DL (7-18); CALCIUM LEVEL 8.7 MG/DL (8.8-10.2); CARBON DIOXIDE LEVEL 26 MEQ/L (21-32); CHLORIDE LEVEL 107 MEQ/L (98-107); CHOLESTEROL LEVEL 153 MG/DL (<200); CPK CREATINE PHOSPHOKINASE 327 U/L (39-308); CREATININE FOR GFR 0.96 MG/DL (0.70-1.30); GLOMERULAR FILTRATION RATE > 60.0 (>49); GLUCOSE, FASTING 94 MG/DL (70-100); HDL CHOLESTEROL 34 MG/DL (>40); LDL CHOLESTEROL 95 MG/DL (<100); NON-HDL-C 119 MG/DL; SODIUM LEVEL 139 MEQ/L (136-145); THYROID STIMULATING HORMONE 0.287 uIU/ML (0.358-3.740); TOTAL PROTEIN 7.4 GM/DL (6.4-8.2); TRIGLYCERIDES LEVEL 118 MG/DL (<150)
[2020-03-03 14:42] LABS: HEMOGLOBIN A1c 5.9 %
== END ==
LOC: M LAB 11:55
PROVIDERS: ATTEND Internal Medicine
DX: R73.09 Other abnormal glucose (principal); E78.00 Pure hypercholesterolemia, unspecified; E03.9 Hypothyroidism, unspecified; Z86.010 Personal history of colon polyps

== ENCOUNTER → 2020-07-22 | Outpatient (REF) | payer OTHER ==
[~2020-07-22] MED LIST changes: +ACET650T61 PO; -ASPI81TA85 PO; +ASPI81TA86 PO; -TYLE650T35 PO
[2020-07-22 18:11] LABS: CLOSTRIDIUM DIFFICILE PCR NEGATIVE (NEGATIVE)
== END ==
LOC: M LAB REF 17:19
PROVIDERS: ATTEND Physician Assistant
DX: R19.7 Diarrhea, unspecified (principal)

== ENCOUNTER → 2020-07-30 | Outpatient (CLI) | payer OTHER ==
[2020-07-30 09:12] LABS: HEMATOCRIT 48.3 % (42.0-52.0); HEMOGLOBIN 15.4 g/dl (13.5-17.5); MEAN CORPUSCULAR HEMOGLOBIN 27.7 pg (27.0-33.0); MEAN CORPUSCULAR HGB CONC 31.9 g/dl (32.0-36.5); MEAN CORPUSCULAR VOLUME 86.9 fl (80.0-96.0); PLATELET COUNT, AUTOMATED 270 10^3/uL (150-450); RED BLOOD COUNT 5.56 10^6/uL (4.30-6.10); WHITE BLOOD COUNT 6.4 10^3/uL (4.0-10.0)
[2020-07-30 09:36] LABS: ERYTHROCYTE SEDIMENTATION RATE 3 mm/hr (0-20)
[2020-07-30 09:43] LABS: ALT/SGPT 32 U/L (12-78); BILIRUBIN,TOTAL 1.1 MG/DL (0.2-1.0); BLOOD UREA NITROGEN 12 MG/DL (7-18); CALCIUM LEVEL 9.1 MG/DL (8.8-10.2); CARBON DIOXIDE LEVEL 26 MEQ/L (21-32); CHLORIDE LEVEL 110 MEQ/L (98-107); GLOMERULAR FILTRATION RATE > 60.0 (>49); GLUCOSE, FASTING 101 MG/DL (70-100); POTASSIUM SERUM 4.1 MEQ/L (3.5-5.1); SODIUM LEVEL 140 MEQ/L (136-145); TOTAL PROTEIN 7.2 GM/DL (6.4-8.2)
== END ==
LOC: M LAB 08:50
PROVIDERS: ATTEND Internal Medicine
DX: R19.7 Diarrhea, unspecified (principal)

== ENCOUNTER → 2020-09-26 | Outpatient (REF) | payer OTHER | LOC: M LAB REF 12:14 | PROVIDERS: ATTEND Internal Medicine | DX: E29.1 Testicular hypofunction (principal) ==

== ENCOUNTER → 2021-02-17 | Outpatient (CLI) | payer OTHER ==
--- NOTE | 2021-02-17 13:58 | REP ---
INDICATION: RT KNEE PAIN. COMPARISON: No comparison prior knee MRI. There are no comparison radiographs. TECHNIQUE: Axial, coronal, and sagittal imaging planes utilized. T1, proton density and T2 weighted scans are obtained in the usual fashion with without fat saturation. FINDINGS: There is no evidence of occult fracture or bony destructive lesion. There are small subcortical cysts in the demario medial aspect of the tibial plateau. There is a tiny stone subcortical marrow edema focus in the central patella associated with moderate central patellar chondromalacia. Cortical and medullary bone signal intensity are otherwise normal. No debi Coto's cyst is seen. No significant joint effusion is appreciated. Patellar and quadriceps tendons appear intact. Anterior and posterior cruciate ligaments have an intact appearance. There is no evidence of medial or lateral collateral ligament disruption. There is medial bowing of the medial collateral ligament due to medial meniscal extrusion. There is a complex degenerative tear in the midbody of the medial meniscus extending into its posterior horn. No lateral meniscal tear is appreciated. There is advanced chondromalacia involving the medial tibial plateau and medial femoral condyle with near full thickness articular cartilage thinning. There is early medial tibiofemoral lipping. There are moderate chondromalacia changes focally in the lateral tibial plateau. There is focal chondromalacia in the trochlear notch articular cartilage. There is chondromalacia in the central patella. IMPRESSION: Advanced chondromalacia, mild osteoarthritic changes most pronounced in the medial compartment but also in the patellofemoral and lateral compartment. There is a complex tear of the medial meniscus. There is some medial meniscal extrusion bowing the medial collateral ligament. Scattered areas of subcortical cyst formation is seen. <Electronically signed by Sreedhar Meade > 02/17/21 [id number]
== END ==
LOC: M RAD 12:19
PROVIDERS: ATTEND Orthopaedic Surgery
DX: M25.561 Pain in right knee (principal); M94.261 Chondromalacia, right knee; M19.071 Primary osteoarthritis, right ankle and foot

== ENCOUNTER → 2021-04-03 | Outpatient (CLI) | payer OTHER | LOC: M PAIN 08:30 | PROVIDERS: ATTEND Family Medicine | DX: M25.561 Pain in right knee (principal); J45.909 Unspecified asthma, uncomplicated; E03.9 Hypothyroidism, unspecified; G47.33 Obstructive sleep apnea (adult) (pediatric); Z86.59 Personal history of other mental and behavioral disorders; Z87.891 Personal history of nicotine dependence; Z88.0 Allergy status to penicillin; Z88.1 Allergy status to other antibiotic agents; Z88.3 Allergy status to other anti-infective agents; Z88.8 Allergy status to other drugs, medicaments and biological substances; Z79.899 Other long term (current) drug therapy ==

== ENCOUNTER → 2021-05-11 | Outpatient (REF) | payer OTHER ==
[2021-05-11 14:28] LABS: BASO # 0.1 10^3/uL (0.0-0.2); BASO % 0.8 % (0.0-1.0); EOS # 0.3 10^3/uL (0.0-0.5); HEMATOCRIT 50.6 % (42.0-52.0); HEMOGLOBIN 15.8 g/dl (13.5-17.5); LYMPH # 1.7 10^3/uL (1.5-5.0); LYMPH % 25.9 % (24.0-44.0); MEAN CORPUSCULAR HEMOGLOBIN 25.3 pg (27.0-33.0); MEAN CORPUSCULAR HGB CONC 31.2 g/dl (32.0-36.5); MONO # 0.7 10^3/uL (0.0-0.8); MONO % 10.5 % (2.0-8.0); NEUTROPHILS # 3.8 10^3/uL (1.5-8.5); NEUTROPHILS % 58.5 % (36.0-66.0); PLATELET COUNT, AUTOMATED 290 10^3/uL (150-450); RED BLOOD COUNT 6.25 10^6/uL (4.30-6.10); WHITE BLOOD COUNT 6.5 10^3/uL (4.0-10.0)
[2021-05-11 15:06] LABS: ALBUMIN 4.1 GM/DL (3.2-5.2); ALT/SGPT 41 U/L (12-78); BILIRUBIN,TOTAL 1.1 MG/DL (0.2-1.0); BLOOD UREA NITROGEN 8 MG/DL (7-18); CALCIUM LEVEL 9.9 MG/DL (8.8-10.2); CARBON DIOXIDE LEVEL 30 MEQ/L (21-32); CHLORIDE LEVEL 105 MEQ/L (98-107); CREATININE FOR GFR 0.85 MG/DL (0.70-1.30); GLOMERULAR FILTRATION RATE > 60.0 (>49); GLUCOSE, FASTING 79 MG/DL (70-100); POTASSIUM SERUM 4.2 MEQ/L (3.5-5.1); SODIUM LEVEL 138 MEQ/L (136-145); THYROID STIMULATING HORMONE 0.262 uIU/ML (0.358-3.740); TOTAL PROTEIN 7.4 GM/DL (6.4-8.2)
== END ==
LOC: M LAB REF 13:10
PROVIDERS: ATTEND Internal Medicine
DX: E03.9 Hypothyroidism, unspecified (principal)

== ENCOUNTER → 2021-05-11 | Outpatient (REF) | payer OTHER ==
[2021-05-12 20:08] LABS: TESTOSTERONE FREE (DIRECT) 13.5 pg/mL (6.6-18.1)
== END ==
LOC: M LAB REF 13:12
PROVIDERS: ATTEND Urology
DX: E29.1 Testicular hypofunction (principal)

== ENCOUNTER → 2021-07-10 | Outpatient (REF) | LOC: M LABSMTC 09:49 | PROVIDERS: ATTEND Pediatrics | DX: Z11.52 Encounter for screening for COVID-19 (principal) ==

== ENCOUNTER → 2021-07-27 | Outpatient (REF) | LOC: M LABSMTC 09:06 | PROVIDERS: ATTEND Family Medicine | DX: Z11.52 Encounter for screening for COVID-19 (principal) ==

== ENCOUNTER → 2021-09-04 | Outpatient (CLI) | payer BC | LOC: M PAIN 15:45 | PROVIDERS: ATTEND Anesthesiology | DX: M22.41 Chondromalacia patellae, right knee (principal); M22.42 Chondromalacia patellae, left knee; E78.5 Hyperlipidemia, unspecified; J45.909 Unspecified asthma, uncomplicated; E03.9 Hypothyroidism, unspecified; F32.A Depression, unspecified; M54.2 Cervicalgia; K21.9 Gastro-esophageal reflux disease without esophagitis; N40.0 Benign prostatic hyperplasia without lower urinary tract symptoms; E29.1 Testicular hypofunction; G47.33 Obstructive sleep apnea (adult) (pediatric); K58.9 Irritable bowel syndrome, unspecified; I87.2 Venous insufficiency (chronic) (peripheral); Z87.891 Personal history of nicotine dependence; Z79.899 Other long term (current) drug therapy; Z88.0 Allergy status to penicillin; Z88.1 Allergy status to other antibiotic agents; Z88.8 Allergy status to other drugs, medicaments and biological substances ==

== ENCOUNTER → 2021-10-31 | Outpatient (CLI) | payer BC ==
[2021-10-31 18:02] LABS: BASO # 0.1 10^3/uL (0.0-0.2); BASO % 1.1 % (0.0-1.0); EOS # 0.3 10^3/uL (0.0-0.5); EOS % 3.7 % (0.0-3.0); HEMATOCRIT 47.5 % (42.0-52.0); HEMOGLOBIN 15.2 g/dl (13.5-17.5); LYMPH # 1.7 10^3/uL (1.5-5.0); LYMPH % 23.1 % (24.0-44.0); MEAN CORPUSCULAR HEMOGLOBIN 26.9 pg (27.0-33.0); MEAN CORPUSCULAR VOLUME 84.1 fl (80.0-96.0); MONO # 0.7 10^3/uL (0.0-0.8); MONO % 9.4 % (2.0-8.0); NEUTROPHILS # 4.7 10^3/uL (1.5-8.5); NEUTROPHILS % 62.6 % (36.0-66.0); PLATELET COUNT, AUTOMATED 253 10^3/uL (150-450); RED BLOOD COUNT 5.65 10^6/uL (4.30-6.10); WHITE BLOOD COUNT 7.5 10^3/uL (4.0-10.0)
[2021-10-31 18:27] LABS: PERCENT SATURATION 19.6 % (19.7-50.0); THYROID STIMULATING HORMONE 0.561 uIU/ML (0.358-3.740)
[2021-10-31 18:29] LABS: HEMOGLOBIN A1c 5.8 %
== END ==
LOC: M LAB 16:57
PROVIDERS: ATTEND Orthopaedic Surgery
DX: M25.569 Pain in unspecified knee (principal)

== ENCOUNTER → 2021-12-25 | Outpatient (REF) | payer BC ==
[2021-12-25 12:44] LABS: APPEARANCE, URINE CLEAR (CLEAR); BACTERIA, URINE AUTO NEGATIVE (NEGATIVE); BILIRUBIN, URINE AUTO NEGATIVE (NEGATIVE); BLOOD, URINE BLOOD NEGATIVE (NEGATIVE); COLOR, URINE STRAW (YELLOW); GLUCOSE, URINE (UA) AUTO NEGATIVE (NEGATIVE); KETONE, URINE AUTO NEGATIVE (NEGATIVE); LEUKOCYTE ESTERASE, URINE AUTO NEGATIVE (NEGATIVE); NITRITE, URINE AUTO NEGATIVE (NEGATIVE); PROTEIN, URINE AUTO NEGATIVE (NEGATIVE); RBC, URINE AUTO 0 /HPF (0-3); SPECIFIC GRAVITY URINE AUTO 1.004 (1.002-1.035); SQUAMOUS EPITHELIAL CELL UR AU 0 /HPF (0-6); UROBILINOGEN, URINE AUTO 0.2 mg/dL (0.0-2.0); WBC, URINE AUTO 0 /HPF (0-3)
[2021-12-25 18:19] LABS: INR 0.95; PROTHROMBIN TIME 13.1 SECONDS (12.7-14.5)
[2021-12-25 18:20] LABS: PARTIAL THROMBOPLASTIN TIME 28.1 SECONDS (25.9-37.0)
== END ==
LOC: M LAB REF 12:11
PROVIDERS: ATTEND Internal Medicine
DX: Z01.818 Encounter for other preprocedural examination (principal)

== ENCOUNTER → 2022-01-24 | Outpatient (REF) | payer BC ==
[2022-01-24 14:37] LABS: ESTRADIOL 21.2 PG/ML (<39.8)
[2022-01-25 12:05] LABS: HEPATITIS B CORE ANTIBODY IGM NEGATIVE (NEGATIVE); HEPATITIS B SURFACE ANTIGEN NEGATIVE (NEGATIVE); HEPATITIS C VIRUS ABY INDEX 0.1 INDEX (<0.8)
== END ==
LOC: M LAB REF 12:29
PROVIDERS: ATTEND Internal Medicine
DX: E29.1 Testicular hypofunction (principal)

== ENCOUNTER → 2022-01-24 | Outpatient (REF) | payer BC | LOC: M LAB REF 16:47 | PROVIDERS: ATTEND Internal Medicine | DX: E29.1 Testicular hypofunction (principal) ==

== ENCOUNTER → 2022-03-30 | Outpatient (REF) | payer BC ==
[2022-03-30 18:28] LABS: ESTRADIOL < 19.0 PG/ML (<39.8)
[2022-04-02 19:06] LABS: TESTOSTERONE FREE (DIRECT) 10.2 pg/mL (6.6-18.1)
== END ==
LOC: M LAB REF 16:32
PROVIDERS: ATTEND Internal Medicine
DX: E29.1 Testicular hypofunction (principal)

== ENCOUNTER → 2022-06-28 | Outpatient (REF) | payer BC ==
[2022-06-30 20:07] LABS: TESTOSTERONE FREE (DIRECT) 2.9 pg/mL (6.6-18.1)
== END ==
LOC: M LAB REF 12:11
PROVIDERS: ATTEND Internal Medicine
DX: E29.1 Testicular hypofunction (principal)

== ENCOUNTER → 2022-10-09 | Outpatient (REF) | payer BC ==
[2022-10-09 13:15] LABS: FOLATE > 24.0 NG/ML (>5.4)
[2022-10-09 13:16] LABS: VITAMIN B12 LEVEL 516 PG/ML (211-911)
== END ==
LOC: M LAB REF 12:14
PROVIDERS: ATTEND Internal Medicine
DX: R20.2 Paresthesia of skin (principal)

== ENCOUNTER → 2022-10-12 | Outpatient (CLI) | payer BC | LOC: M RAD 13:22 | PROVIDERS: ATTEND Internal Medicine | DX: R07.1 Chest pain on breathing (principal) ==

== ENCOUNTER → 2022-11-07 | Outpatient (CLI) | payer BC ==
[2022-11-07 10:03] LABS: HEMATOCRIT 46.8 % (42.0-52.0); HEMOGLOBIN 15.5 g/dl (13.5-17.5)
[2022-11-07 10:44] LABS: ESTRADIOL < 19.0 PG/ML (<39.8)
[2022-11-08 11:08] LABS: TESTOSTERONE FREE (DIRECT) 4.6 pg/mL (6.6-18.1)
== END ==
LOC: M LAB 08:51
DX: E29.1 Testicular hypofunction (principal)

== ENCOUNTER → 2022-12-14 | Outpatient (REF) | payer BC | LOC: M LAB REF 16:28 | PROVIDERS: ATTEND Internal Medicine | DX: E29.1 Testicular hypofunction (principal) ==

== ENCOUNTER → 2023-10-07 | Outpatient (CLI) | payer BC | LOC: M WUC 10:36 | PROVIDERS: ATTEND Physician Assistant Medical | DX: R05.9 Cough, unspecified (principal); R06.02 Shortness of breath ==

== ENCOUNTER → 2023-11-12 | Outpatient (REF) | payer BC, MEDICARE ==
[2023-11-13 16:13] LABS: TESTOSTERONE FREE (DIRECT) 4.1 pg/mL (6.6-18.1)
== END ==
LOC: M LAB REF 12:19
PROVIDERS: ATTEND Internal Medicine
DX: E29.1 Testicular hypofunction (principal)

== ENCOUNTER → 2024-06-08 | Outpatient (REF) | payer MEDICARE, BC | LOC: M LAB REF 16:53 | PROVIDERS: ATTEND Internal Medicine | DX: E78.00 Pure hypercholesterolemia, unspecified (principal) ==

== ENCOUNTER → 2024-06-08 | Outpatient (CLI) | payer MEDICARE, BC | LOC: M WUC 13:27 | PROVIDERS: ATTEND Internal Medicine | DX: R10.9 Unspecified abdominal pain (principal) ==

== ENCOUNTER → 2024-07-15 | Outpatient (CLI) | payer MEDICARE, BC ==
[2024-07-15 12:36] LABS: PSA SCREENING 1.88 NG/ML (< 4.00)
[2024-07-15 12:42] LABS: ESTRADIOL 27.3 PG/ML (<39.8)
== END ==
LOC: M WUC 09:28
PROVIDERS: ATTEND Physician Assistant Medical
DX: E29.1 Testicular hypofunction (principal)
CPT/HCPCS: 36415; 82670; 84402; 84403; G0103

== ENCOUNTER → 2024-08-17 | Outpatient (REF) | payer MEDICARE, BC | LOC: M LAB REF 18:00 | PROVIDERS: ATTEND Surgery | DX: L72.9 Follicular cyst of the skin and subcutaneous tissue, unspecified (principal) ==

== ENCOUNTER → 2025-03-29 | Outpatient (CLI) | payer MEDICARE, BC ==
[2025-03-29 13:38] LABS: PSA SCREENING 0.94 NG/ML (< 4.00)
[2025-03-29 13:43] LABS: ESTRADIOL 53.3 PG/ML (<39.8)
[2025-04-02 20:47] LABS: TESTOSTERONE FREE (DIRECT) 55.8 pg/mL (30.0-135.0); TESTOSTERONE TOTAL FOR T&D 367.0 ng/dL (250-1100)
== END ==
LOC: M WUC 09:23
PROVIDERS: ATTEND Physician Assistant Medical
DX: E29.1 Testicular hypofunction (principal); Z12.5 Encounter for screening for malignant neoplasm of prostate
CPT/HCPCS: 36415; 82670; 84402; 84403; G0103

== ENCOUNTER → 2025-04-30 | Outpatient (REF) | payer MEDICARE, BC | LOC: M LAB REF 11:40 | PROVIDERS: ATTEND Internal Medicine | DX: N39.0 Urinary tract infection, site not specified (principal); N32.81 Overactive bladder; E31.9 Polyglandular dysfunction, unspecified ==

== ENCOUNTER → 2025-05-10 | Outpatient (REF) | payer BC, MEDICARE | LOC: M LAB REF 12:08 | PROVIDERS: ATTEND Internal Medicine | DX: R31.9 Hematuria, unspecified (principal) ==

== ENCOUNTER → 2025-05-19 | Outpatient (REF) | payer MEDICARE | LOC: M LAB REF 17:11 | PROVIDERS: ATTEND Internal Medicine | DX: R31.9 Hematuria, unspecified (principal) ==

== ENCOUNTER → 2025-05-26 | Outpatient (REF) | payer MEDICARE | LOC: M LAB REF 12:14 | PROVIDERS: ATTEND Internal Medicine | DX: R31.9 Hematuria, unspecified (principal) ==